=== PATIENT | male | born 2000 | race Hispanic/Latino ===

== ENCOUNTER 2022-05-13 15:29 | Outpatient (CLI) | payer OTHER ==
[~2022-05-13 15:29] MED LIST: Iopamidol 370 76% 100 ML VIAL ONE
== END 2022-05-13 15:30 | disposition home or self-care (01) ==
LOC: MADCT 15:29
PROVIDERS: ATTEND Nurse Practitioner
DX: R89.1 Abnormal level of hormones in specimens from other organs, systems and tissues (principal)
CPT/HCPCS: 74177; Q9967